=== PATIENT | female | born 1945 | race Caucasian/White ===

== ENCOUNTER 2017-02-20 10:08 | Inpatient (IN) | payer MEDICARE ==
[~2017-02-20] VITALS: Ht 152.4 cm; Wt 56.6 kg
[~2017-02-20 10:08] MED LIST: ASPIRIN 32325 MG/TAB PO; ASPIRIN 81M81 MG/TA2 PO; CELEXA40 MG PO; GABAPENTIN800 MG PO; GLUCOPHAGE1000 MG PO; HUMALOG100 U/ML SC; HUMALOG100 U/ML SQ; LANTUS100 U/ML SC; LEVAQUIN 5500 MG/TA1 PO; LIP PO; LUNESTA3 MG PO; MAG-OX 400400 MG/TAB PO; METFORMIN1000 MG PO; MYSOLINE 5050 MG/TAB PO; NEURONTIN800 MG/TAB PO; NOVOLOG 100U100 U/M1; NOVOLOG 100U100 U/M1 SC; NOVOLOG100 U/ML SC; PREVACID 30MG30 M1 PO; PRINIVIL2.5 MG PO; RANITIDINE150 MG PO; RESTORIL 1515 MG/CAP PO; SINEMET 25/101 UDTAB PO; [UNRECOGNIZED DRUG - OTHER] SC; [UNRECOGNIZED DRUG - OTHER] SQ
[2017-02-20 10:39] LABS: PH 5 (5-8); SQUAMOUS EPITHELIAL 0-2 /hpf; URINE APPEARANCE Clear; URINE BACTERIA None Seen /hpf; URINE BILIRUBIN Negative (NEGATIVE); URINE BLOOD 1+ (NEGATIVE); URINE COLOR Yellow; URINE GLUCOSE Negative (NEGATIVE); URINE KETONE Trace (NEGATIVE); URINE UROBILINOGEN Negative (NEGATIVE)
[2017-02-20 10:49] LABS: BASO # 0.1 (0.0-0.2); BASO % 0.3 % (0.0-2.0); EOS # 0.7 (0.0-0.7); GRAN # 14.9 (1.4-6.5); HEMATOCRIT 39.7 % (37.0-47.0); LYMPH # 0.9 (1.2-3.4); LYMPH % 5.2 % (20.0-51.0); MEAN CELL VOLUME 92 fl (80.0-100.0); MEAN CORPUSCULAR HEMOGLOBIN 30 pg (27.0-31.0); MEAN CORPUSCULAR HGB CONC 33 g/dl (33.0-37.0); MEAN PLATELET VOLUME 10.4 fl (7.4-10.4); MONO # 0.5 (0.1-0.6); PLATELET COUNT 185 K/mm3 (130-400); RED BLOOD COUNT 4.32 M/mm3 (4.10-5.30); REDCELL DISTRIBUTION WIDTH-CV 13.3 % (11.5-14.5); WHITE BLOOD COUNT 17.2 K/mm3 (4.8-10.8)
[2017-02-20] MEDS ORDERED: WELLBUTRIN XL150 MG PO (10:49)
[2017-02-20] MEDS ORDERED: PLAVIX 75MG TAB75 MG PO (10:50)
[2017-02-20] MEDS ORDERED: VITAMIN D1000 IU PO (10:50)
[2017-02-20] MEDS ORDERED: PEPCID 20MG TAB20 MG PO (10:51)
[2017-02-20] MEDS ORDERED: HUMULIN R 10100 U/ML SQ (10:52)
[2017-02-20] MEDS ORDERED: PRINIVIL2.5 MG PO (10:53)
[2017-02-20] MEDS ORDERED: HUMULIN N 10100 U/ML SC (10:53)
[2017-02-20] MEDS ORDERED: MAG-OX 400400 MG/TAB PO (10:55)
[2017-02-20 10:59] LABS: ADJUSTED CALCIUM 9.6 mg/dL (8.4-10.2); ALBUMIN 4.3 gm/dL (3.5-5.0); CALCIUM 9.8 mg/dL (8.4-10.2); CREATININE, serum 1.2 mg/dL (0.52-1.25); POTASSIUM 5.3 mmol/L (3.4-5.0); TOTAL PROTEIN 7.7 gm/dL (6.4-8.2)
[2017-02-20] MEDS ORDERED: TOPROL XL 25MG25 MG PO (11:00)
[2017-02-20] MEDS ORDERED: NITROSTAT0.4 MG/TAB SL (11:01)
[2017-02-20] MEDS ORDERED: ZOFRAN8 MG PO (11:03)
[2017-02-20] MEDS ORDERED: MACROBID 1100 MG/CAP PO (11:04)
[2017-02-20] MEDS ORDERED: RESTORIL 1515 MG/CAP PO (11:04)
[2017-02-20 12:19] VITALS: BP 140/79; PULSE 89
[2017-02-20 15:36] VITALS: BP 143/48; PULSE 90; TEMP 99.9
[2017-02-20 15:45] VITALS: BP 143/48; PULSE 89; TEMP 99.9
[2017-02-20 15:46] LABS: MAGNESIUM 1.5 mg/dL (1.6-2.3); PHOSPHOROUS 4.6 mg/dL (2.5-4.5)
[2017-02-20 20:30] VITALS: BP 131/43; PULSE 92; TEMP 98.3
[2017-02-21 00:30] VITALS: BP 142/40; PULSE 81; TEMP 98
[2017-02-21 03:10] VITALS: BP 127/47; PULSE 73; TEMP 98
[2017-02-21 07:01] LABS: CREATININE, serum 0.8 mg/dL (0.52-1.25); MAGNESIUM 1.5 mg/dL (1.6-2.3); POTASSIUM 4.5 mmol/L (3.4-5.0)
[2017-02-21 07:44] LABS: BASO % 0.2 % (0.0-2.0); EOS # 0.9 (0.0-0.7); GRAN # 8.1 (1.4-6.5); GRAN % 75.1 % (42.2-75.2); HEMATOCRIT 39.1 % (37.0-47.0); LYMPH # 1.1 (1.2-3.4); LYMPH % 10.1 % (20.0-51.0); MEAN CELL VOLUME 91 fl (80.0-100.0); MEAN CORPUSCULAR HEMOGLOBIN 30 pg (27.0-31.0); MEAN CORPUSCULAR HGB CONC 33 g/dl (33.0-37.0); MONO # 0.7 (0.1-0.6); RED BLOOD COUNT 4.31 M/mm3 (4.10-5.30); REDCELL DISTRIBUTION WIDTH-CV 13.2 % (11.5-14.5); WHITE BLOOD COUNT 10.8 K/mm3 (4.8-10.8)
[2017-02-21 07:58] VITALS: BP 162/57; PULSE 93; TEMP 98
[2017-02-21 08:14] LABS: PLATELET COUNT 112 K/mm3 (130-400)
[2017-02-21 12:28] VITALS: BP 139/63; PULSE 77; TEMP 98
[2017-02-21 15:29] VITALS: BP 142/50; PULSE 76; TEMP 98.2
[2017-02-21 20:02] VITALS: BP 149/58; PULSE 81; TEMP 98.2
[2017-02-22 00:13] VITALS: BP 153/61; PULSE 84; TEMP 97.7
[2017-02-22 04:51] VITALS: BP 177/66; PULSE 81; TEMP 98.7
[2017-02-22 08:00] VITALS: BP 177/66; PULSE 80; TEMP 98.5
[2017-02-22 13:03] VITALS: BP 178/66; PULSE 80; TEMP 98.7
[2017-02-22 16:47] VITALS: BP 146/66; PULSE 80; TEMP 97.4
[2017-02-22 19:07] VITALS: BP 146/63; PULSE 89; TEMP 97.8
[2017-02-23] VITALS (7 sets, daily range): BP systolic 146–176; BP diastolic 58–77; PULSE 76–86; TEMP 97.2–98.5
[2017-02-23 07:26] LABS: INR 1.2 (0.8-3.0); PROTHROMBIN TIME 12.8 SECONDS (9.7-12.8)
[2017-02-24 02:40] VITALS: BP 156/53; PULSE 83; TEMP 98.1
[2017-02-24 10:15] VITALS: BP 177/69; PULSE 82
[2017-02-24 12:31] VITALS: BP 171/59; PULSE 80; TEMP 98.4
[2017-02-24] MEDS ORDERED: LOVENOX 3030 MG/0.3 SQ (14:17)
[2017-03-05] MEDS ORDERED: PLAVIX 75MG TAB75 MG PO (07:48)
[2017-03-05] MEDS ORDERED: ASPIRIN 81M81 MG/TA2 PO (07:49)
[2017-03-05] MEDS ORDERED: GLUCOPHAGE1000 MG PO (07:50)
[2017-05-30] MEDS ORDERED: CALCIUM 600MG+D1 TAB PO (10:52)
[2017-05-30] MEDS ORDERED: HUMULIN N 10100 U/ML SQ (10:55)
[2017-05-30] MEDS ORDERED: HUMULIN R 10100 U/ML SQ (10:56)
[2017-05-30] MEDS ORDERED: FORT1000TA PO (10:58)
[2017-05-30] MEDS ORDERED: TOPROL XL 25MG25 MG PO (10:59)
== END 2017-02-24 16:30 | disposition home or self-care (01) | DRG 872 ==
LOC: COL.ER 10:08 → MEDICAL 12:17
PROVIDERS: Emergency Medicine; Family Medicine; Physician Assistant
DX: A41.51 Sepsis due to Escherichia coli [E. coli] (principal); N39.0 Urinary tract infection, site not specified; Z66 Do not resuscitate; R91.8 Other nonspecific abnormal finding of lung field; E87.5 Hyperkalemia; I25.10 Atherosclerotic heart disease of native coronary artery without angina pectoris; I10 Essential (primary) hypertension; G20 Parkinson's disease; Z95.5 Presence of coronary angioplasty implant and graft; E11.42 Type 2 diabetes mellitus with diabetic polyneuropathy; J44.9 Chronic obstructive pulmonary disease, unspecified; F17.210 Nicotine dependence, cigarettes, uncomplicated; Z79.4 Long term (current) use of insulin; W18.30XA Fall on same level, unspecified, initial encounter; E86.0 Dehydration; B96.20 Unspecified Escherichia coli [E. coli] as the cause of diseases classified elsewhere
CPT/HCPCS: 99222-AI; 99232-AI; 99239; A9284; A9585; G0378; G8978-GP; G8979-GP; J0696; J1650; J1815; J2920; J7030; Q9967

== ENCOUNTER 2017-02-26 13:46 | Inpatient (IN) | payer MEDICARE ==
[~2017-02-26] VITALS: Ht 154.9 cm; Wt 54.0 kg
[2017-02-26] VITALS (372 sets, daily range): BP systolic 135–142; BP diastolic 53–64; PULSE 95–102; TEMP 98.2–99.1; O2SAT 63–98
[~2017-02-26 13:46] MED LIST changes: +HUMULIN N 10100 U/ML SC; +HUMULIN R 10100 U/ML SQ; +LOVENOX 3030 MG/0.3 SQ; +MACROBID 1100 MG/CAP PO; +NITROSTAT0.4 MG/TAB SL; +PEPCID 20MG TAB20 MG PO; +PLAVIX 75MG TAB75 MG PO; +TOPROL XL 25MG25 MG PO; +VITAMIN D1000 IU PO; +WELLBUTRIN XL150 MG PO; +ZOFRAN8 MG PO
[2017-02-26 14:17] LABS: BASO % 0.2 % (0.0-2.0); EOS # 1.1 (0.0-0.7); EOS % 5.2 % (0-4.0); GRAN # 19.1 (1.4-6.5); GRAN % 87.9 % (42.2-75.2); HEMATOCRIT 39.2 % (37.0-47.0); LYMPH # 0.8 (1.2-3.4); LYMPH % 3.4 % (20.0-51.0); MEAN CELL VOLUME 90 fl (80.0-100.0); MEAN CORPUSCULAR HEMOGLOBIN 30 pg (27.0-31.0); MEAN CORPUSCULAR HGB CONC 33 g/dl (33.0-37.0); MEAN PLATELET VOLUME 10.2 fl (7.4-10.4); MONO # 0.6 (0.1-0.6); MONO % 2.6 % (1.7-9.3); PLATELET COUNT 204 K/mm3 (130-400); RED BLOOD COUNT 4.34 M/mm3 (4.10-5.30); REDCELL DISTRIBUTION WIDTH-CV 13.5 % (11.5-14.5)
[2017-02-26 14:26] LABS: WHITE BLOOD COUNT 21.8 K/mm3 (4.8-10.8)
[2017-02-26 14:33] LABS: INFLUENZA B NEGATIVE
[2017-02-26 14:36] LABS: ADJUSTED CALCIUM 9.7 mg/dL (8.4-10.2); ALBUMIN 3.5 gm/dL (3.5-5.0); BILIRUBIN,TOTAL 1.1 mg/dL (0.0-1.0); CALCIUM 9.3 mg/dL (8.4-10.2); CREATININE, serum 0.81 mg/dL (0.52-1.25); POTASSIUM 3.6 mmol/L (3.4-5.0); TOTAL PROTEIN 6.7 gm/dL (6.4-8.2)
[2017-02-26 14:48] LABS: TROPONIN-I 0.013 ng/mL (0.000-0.034)
[2017-02-26 15:09] LABS: VENOUS BLOOD GAS BE 0.6 (-4-4); VENOUS BLOOD GAS SAO2 60.8 % (60-80)
[2017-02-26 15:10] LABS: VENOUS BLOOD GAS SITE VENIPUNCTURE
[2017-02-26] MEDS ORDERED: LOVENOX 3030 MG/0.3 SQ (16:09)
[2017-02-26 16:23] LABS: PH 5 (5-8); SQUAMOUS EPITHELIAL 0-2 /hpf; URINE APPEARANCE Clear; URINE BACTERIA None Seen /hpf; URINE BILIRUBIN Negative (NEGATIVE); URINE BLOOD 1+ (NEGATIVE); URINE COLOR Yellow; URINE GLUCOSE 3+ (NEGATIVE); URINE KETONE 1+ (NEGATIVE); URINE RBC 0-2 /hpf; URINE UROBILINOGEN Negative (NEGATIVE); URINE WBC 0-2 /hpf
[2017-02-26 20:08] LABS: ALLEN TEST YES; ALLENS TEST RESULT PASS; ARTERIAL BLD GAS O2 SATURATION 88.3 % (92-100); ARTERIAL BLD GAS TCO2 CT 25.3; ARTERIAL BLOOD GAS BASE EXCESS -0.8 (-2-2); ARTERIAL BLOOD GAS HCO3 24.1 meq/L (22-26); ARTERIAL BLOOD GAS PO2 64.6 mmHg (80-100); ARTERIAL BLOOD GAS pH 7.39 (7.35-7.45); ATS? YES
[2017-02-27] VITALS (686 sets, daily range): BP systolic 112–150; BP diastolic 45–62; PULSE 77–89; TEMP 96.2–98.5; O2SAT 88–100
[2017-02-27 06:05] LABS: ADD PATHOLOGY DIFF REVIEW NO
[2017-02-27 06:15] LABS: MEAN CELL VOLUME 92 fl (80.0-100.0); MEAN CORPUSCULAR HGB CONC 32 g/dl (33.0-37.0); MEAN PLATELET VOLUME 10.3 fl (7.4-10.4); PLATELET COUNT 168 K/mm3 (130-400); RED BLOOD COUNT 3.61 M/mm3 (4.10-5.30); REDCELL DISTRIBUTION WIDTH-CV 13.5 % (11.5-14.5); WHITE BLOOD COUNT 16.7 K/mm3 (4.8-10.8)
[2017-02-27 06:30] LABS: HEMATOCRIT 33.2 % (37.0-47.0); HEMOGLOBIN 10.7 g/dl (12.5-16.0); MEAN CORPUSCULAR HEMOGLOBIN 30 pg (27.0-31.0)
[2017-02-27 10:56] LABS: BAND 4 % (0-10); EOSINOPHIL 3 % (0-4); NEUTROPHILS 89 % (42.0-75.2); TOTAL CELLS COUNTED 100
[2017-02-27 10:57] LABS: TOXIC GRANULATION PRESENT
[2017-02-28] VITALS (7 sets, daily range): BP systolic 107–157; BP diastolic 44–78; PULSE 67–84; TEMP 96.5–98.5
[2017-02-28 12:27] LABS: BASO % 0.2 % (0.0-2.0); EOS # 1.4 (0.0-0.7); EOS % 8.1 % (0-4.0); GRAN # 13.8 (1.4-6.5); GRAN % 78.7 % (42.2-75.2); LYMPH # 1.6 (1.2-3.4); LYMPH % 9.3 % (20.0-51.0); MEAN CELL VOLUME 92 fl (80.0-100.0); MEAN CORPUSCULAR HGB CONC 32 g/dl (33.0-37.0); MEAN PLATELET VOLUME 10.3 fl (7.4-10.4); MONO # 0.6 (0.1-0.6); MONO % 3.2 % (1.7-9.3); PLATELET COUNT 204 K/mm3 (130-400); RED BLOOD COUNT 3.79 M/mm3 (4.10-5.30); REDCELL DISTRIBUTION WIDTH-CV 13.7 % (11.5-14.5); WHITE BLOOD COUNT 17.6 K/mm3 (4.8-10.8)
[2017-02-28 12:29] LABS: HEMOGLOBIN 11.2 g/dl (12.5-16.0); MEAN CORPUSCULAR HEMOGLOBIN 30 pg (27.0-31.0)
[2017-03-01 03:59] VITALS: BP 156/66; PULSE 71; TEMP 98.6
[2017-03-01 08:05] VITALS: BP 163/60; PULSE 76; TEMP 98.7
[2017-03-01 12:24] VITALS: BP 143/56; PULSE 81; TEMP 98.4
[2017-03-01] MEDS ORDERED: IPRATROPIUM BROM3 M1 IH ×2 (15:47→15:48)
[2017-03-01] MEDS ORDERED: LEVAQUIN 750MG750 M1 PO (15:47)
[2017-03-01] MEDS ORDERED: TYLENOL 325MG325 MG PO (15:49)
[2017-03-01] MEDS ORDERED: NOVOLOG FLEX100 U/ML SQ ×2 (15:50)
[2017-03-01] MEDS ORDERED: LEVEMIR FLEX100 U/ML SQ (15:51)
[2017-03-01] MEDS ORDERED: PERCOCET 325 MG1 TA2 PO (15:53)
[2017-03-01 16:03] VITALS: BP 143/56; PULSE 81; TEMP 98.4
[2017-03-05] MEDS ORDERED: PLAVIX 75MG TAB75 MG PO (07:48)
[2017-03-05] MEDS ORDERED: ASPIRIN 81M81 MG/TA2 PO (07:49)
[2017-03-05] MEDS ORDERED: GLUCOPHAGE1000 MG PO (07:50)
[2017-05-30] MEDS ORDERED: CALCIUM 600MG+D1 TAB PO (10:52)
[2017-05-30] MEDS ORDERED: HUMULIN N 10100 U/ML SQ (10:55)
[2017-05-30] MEDS ORDERED: HUMULIN R 10100 U/ML SQ (10:56)
[2017-05-30] MEDS ORDERED: FORT1000TA PO (10:58)
[2017-05-30] MEDS ORDERED: TOPROL XL 25MG25 MG PO (10:59)
== END 2017-03-01 17:27 | DRG 181 ==
LOC: COL.ER 13:46 → MEDICAL 13:55 → ICU 13:55 → MEDICAL 02-27 17:10
PROVIDERS: Emergency Medicine; Internal Medicine
DX: C34.31 Malignant neoplasm of lower lobe, right bronchus or lung (principal); S22.41XA Multiple fractures of ribs, right side, initial encounter for closed fracture; J44.9 Chronic obstructive pulmonary disease, unspecified; I10 Essential (primary) hypertension; E11.42 Type 2 diabetes mellitus with diabetic polyneuropathy; G20 Parkinson's disease; I25.10 Atherosclerotic heart disease of native coronary artery without angina pectoris; F17.210 Nicotine dependence, cigarettes, uncomplicated; W18.30XA Fall on same level, unspecified, initial encounter
CPT/HCPCS: 99223-AI; 99232-AI; 99233-AI; 99239; A9284; J0692; J1650; J1815; J1956; J2930; J3370; J7030; J7050; Q9967

== ENCOUNTER 2017-03-05 08:08 | Outpatient (CLI) | payer MEDICARE ==
[~2017-03-05] VITALS: Ht 154.9 cm; Wt 52.3 kg
[2017-03-05] VITALS (15 sets, daily range): BP systolic 113–175; BP diastolic 56–91; PULSE 68–88
[~2017-03-05 08:08] MED LIST changes: +IPRATROPIUM BROM3 M1 IH; +LEVAQUIN 750MG750 M1 PO; +LEVEMIR FLEX100 U/ML SQ; +NOVOLOG FLEX100 U/ML SQ; +PERCOCET 325 MG1 TA2 PO; +TYLENOL 325MG325 MG PO
[2017-05-30] MEDS ORDERED: CALCIUM 600MG+D1 TAB PO (10:52)
[2017-05-30] MEDS ORDERED: HUMULIN N 10100 U/ML SQ (10:55)
[2017-05-30] MEDS ORDERED: HUMULIN R 10100 U/ML SQ (10:56)
[2017-05-30] MEDS ORDERED: FORT1000TA PO (10:58)
[2017-05-30] MEDS ORDERED: TOPROL XL 25MG25 MG PO (10:59)
== END 2017-03-05 13:00 | disposition home or self-care (01) ==
LOC: COL.RAD 08:08
DX: C34.31 Malignant neoplasm of lower lobe, right bronchus or lung (principal)
CPT/HCPCS: J2250; J3010

== ENCOUNTER 2017-03-22 09:56 | Inpatient (IN) | payer MEDICARE ==
[~2017-03-22] VITALS: Ht 154.9 cm; Wt 62.4 kg
[2017-03-22] VITALS (425 sets, daily range): BP systolic 83–127; BP diastolic 40–58; PULSE 86–88; TEMP 97.1–98; O2SAT 70–100
[2017-03-22 10:46] LABS: BASO # 0.1 (0.0-0.2); BASO % 0.3 % (0.0-2.0); EOS # 0.8 (0.0-0.7); EOS % 3.9 % (0-4.0); GRAN # 17.4 (1.4-6.5); GRAN % 88.2 % (42.2-75.2); HEMATOCRIT 39.1 % (37.0-47.0); HEMOGLOBIN 12.5 g/dl (12.5-16.0); INR 1.1 (0.8-3.0); LYMPH # 0.9 (1.2-3.4); LYMPH % 4.7 % (20.0-51.0); MEAN CELL VOLUME 93 fl (80.0-100.0); MEAN CORPUSCULAR HEMOGLOBIN 30 pg (27.0-31.0); MEAN CORPUSCULAR HGB CONC 32 g/dl (33.0-37.0); MEAN PLATELET VOLUME 10.4 fl (7.4-10.4); MONO # 0.4 (0.1-0.6); MONO % 2.2 % (1.7-9.3); PLATELET COUNT 217 K/mm3 (130-400); RED BLOOD COUNT 4.19 M/mm3 (4.10-5.30); REDCELL DISTRIBUTION WIDTH-CV 13.3 % (11.5-14.5); WHITE BLOOD COUNT 19.7 K/mm3 (4.8-10.8)
[2017-03-22 10:49] LABS: PARTIAL THROMBOPLASTIN TIME 32.1 SECONDS (26.0-37.0)
[2017-03-22 10:58] LABS: ADJUSTED CALCIUM 9.7 mg/dL (8.4-10.2); ALANINE AMINOTRANSFERASE 18 U/L (9-52); ALBUMIN 4.1 gm/dL (3.5-5.0); ALKALINE PHOSPHATASE 123 U/L (50-136); ANION GAP 14 mmol/L (7-16); BLOOD UREA NITROGEN 32 mg/dL (7-17); CALCIUM 9.8 mg/dL (8.4-10.2); CARBON DIOXIDE 28 mmol/L (22-30); CHLORIDE 99 mmol/L (98-107); CREATININE, serum 1.25 mg/dL (0.52-1.25); GLUCOSE 105 mg/dL (74-106); LIPASE 130 U/L (23-300); POTASSIUM 4.9 mmol/L (3.4-5.0); SODIUM 141 mmol/L (137-145); TOTAL PROTEIN 7.5 gm/dL (6.4-8.2)
[2017-03-22 11:10] LABS: B-TYPE NATRIURETIC PEPTIDE 1010 pg/mL (0-125)
[2017-03-22 11:11] LABS: TROPONIN-I < 0.012 ng/mL (0.000-0.034)
[2017-03-22 12:33] LABS: PH 5 (5-8); URINE APPEARANCE Hazy; URINE BACTERIA None Seen /hpf; URINE BILIRUBIN Negative (NEGATIVE); URINE BLOOD Negative (NEGATIVE); URINE COLOR Yellow; URINE GLUCOSE Negative (NEGATIVE); URINE KETONE Trace (NEGATIVE); URINE RBC 0-2 /hpf; URINE UROBILINOGEN Negative (NEGATIVE); URINE WBC 0-2 /hpf
[2017-03-22 13:17] LABS: ARTERIAL BLD GAS O2 SATURATION 92.6 % (92-100); ARTERIAL BLD GAS TCO2 CT 28.6; ARTERIAL BLOOD GAS BASE EXCESS 0.7 (-2-2); ARTERIAL BLOOD GAS PHT 7.34 C (7.35-7.45); ARTERIAL BLOOD GAS PO2 75.2 mmHg (80-100); ARTERIAL BLOOD GAS PO2T 75.2 (80-100); ARTERIAL BLOOD GAS pH 7.34 (7.35-7.45); OXYHEMOGLOBIN 91.9 %
[2017-03-22 13:18] LABS: ATS? YES
[2017-03-22] MEDS ORDERED: MILK OF MA400 MG/52 PO (13:52)
[2017-03-22] MEDS ORDERED: PERCOCET 325 MG1 TA2 PO (13:53)
[2017-03-22] MEDS ORDERED: IPRATROPIUM BROM3 M1 IH ×2 (13:55→14:01)
[2017-03-22] MEDS ORDERED: LEVEMIR100 U/ML SQ (13:58)
[2017-03-22] MEDS ORDERED: NOVOLOG 100U100 U/M1 SQ ×2 (13:58→14:11)
[2017-03-22] MEDS ORDERED: LIPITOR 80MG80 MG PO (14:02)
[2017-03-22] MEDS ORDERED: MAG-OX 400400 MG/TAB PO (14:13)
[2017-03-22] MEDS ORDERED: ALMACONE 360 M360 ML PO (14:14)
[2017-03-22] MEDS ORDERED: GENTLE LAXATIVE10 MG RC (14:15)
[2017-03-22] MEDS ORDERED: TYLENOL 325MG325 MG PO (14:16)
[2017-03-22] MEDS ORDERED: IMODIUM 2MG CAPS2 MG PO (14:17)
[2017-03-23] VITALS (756 sets, daily range): BP systolic 114–167; BP diastolic 52–64; PULSE 79–110; TEMP 97–98.9; O2SAT 87–100
[2017-03-23 03:24] LABS: BASO % 0.2 % (0.0-2.0); EOS % 0.3 % (0-4.0); GRAN # 10.7 (1.4-6.5); GRAN % 90.9 % (42.2-75.2); HEMATOCRIT 30.9 % (37.0-47.0); HEMOGLOBIN 10.1 g/dl (12.5-16.0); LYMPH # 0.8 (1.2-3.4); MEAN CELL VOLUME 93 fl (80.0-100.0); MEAN CORPUSCULAR HEMOGLOBIN 31 pg (27.0-31.0); MEAN CORPUSCULAR HGB CONC 33 g/dl (33.0-37.0); MEAN PLATELET VOLUME 10.4 fl (7.4-10.4); MONO # 0.1 (0.1-0.6); MONO % 0.8 % (1.7-9.3); PLATELET COUNT 132 K/mm3 (130-400); RED BLOOD COUNT 3.31 M/mm3 (4.10-5.30); WHITE BLOOD COUNT 11.8 K/mm3 (4.8-10.8)
[2017-03-23 03:34] LABS: ADJUSTED CALCIUM 9.2 mg/dL (8.4-10.2); ALBUMIN 3.1 gm/dL (3.5-5.0); BILIRUBIN,TOTAL 0.7 mg/dL (0.0-1.0); CALCIUM 8.5 mg/dL (8.4-10.2); CREATININE, serum 0.91 mg/dL (0.52-1.25); POTASSIUM 4.4 mmol/L (3.4-5.0)
[2017-03-23 03:45] LABS: INR 1.2 (0.8-3.0); PROTHROMBIN TIME 13.5 SECONDS (9.7-12.8)
[2017-03-23 05:37] LABS: ARTERIAL BLOOD GAS PO2 93.7 mmHg (80-100); ARTERIAL BLOOD GAS pH 7.35 (7.35-7.45)
[2017-03-23 05:38] LABS: ALLEN TEST YES; ALLENS TEST RESULT PASS; ARTERIAL BLD GAS O2 SATURATION 96.2 % (92-100); ARTERIAL BLD GAS TCO2 CT 25.1; ARTERIAL BLOOD GAS BASE EXCESS -1.8 (-2-2); ARTERIAL BLOOD GAS HCO3 23.7 meq/L (22-26); ATS? YES
[2017-03-24 00:02] VITALS: BP 165/70; PULSE 85; TEMP 97
[2017-03-24 04:00] VITALS: BP 146/58; PULSE 88; TEMP 98.6
[2017-03-24 07:32] LABS: MEAN CELL VOLUME 94 fl (80.0-100.0); MEAN CORPUSCULAR HGB CONC 32 g/dl (33.0-37.0); PLATELET COUNT 130 K/mm3 (130-400); RED BLOOD COUNT 3.23 M/mm3 (4.10-5.30); REDCELL DISTRIBUTION WIDTH-CV 13.2 % (11.5-14.5); WHITE BLOOD COUNT 13.8 K/mm3 (4.8-10.8)
[2017-03-24 07:39] LABS: HEMATOCRIT 30.3 % (37.0-47.0); HEMOGLOBIN 9.7 g/dl (12.5-16.0); MEAN CORPUSCULAR HEMOGLOBIN 30 pg (27.0-31.0)
[2017-03-24 07:40] LABS: ADD PATHOLOGY DIFF REVIEW NO
[2017-03-24 07:45] LABS: ADJUSTED CALCIUM 9.8 mg/dL (8.4-10.2); ALBUMIN 2.8 gm/dL (3.5-5.0); BILIRUBIN,TOTAL 0.4 mg/dL (0.0-1.0); CALCIUM 8.8 mg/dL (8.4-10.2); TOTAL PROTEIN 5.9 gm/dL (6.4-8.2)
[2017-03-24 08:00] VITALS: BP 144/53; PULSE 87; TEMP 97.5
[2017-03-24 08:24] LABS: CREATININE, serum 0.8 mg/dL (0.52-1.25)
[2017-03-24 10:05] VITALS: BP 144/53; PULSE 87; TEMP 97.5
[2017-03-24 10:28] LABS: BAND 2 % (0-10); NEUTROPHILS 86 % (42.0-75.2); TOTAL CELLS COUNTED 100
[2017-03-24 10:29] LABS: PLATELET ESTIMATE NORMAL (NORMAL)
[2017-03-24] MEDS ORDERED: TOPROL XL 25MG25 MG PO (10:49)
[2017-03-24] MEDS ORDERED: PREDNISONE20 MG PO (10:50)
[2017-03-24] MEDS ORDERED: OMNICEF 300MG300 MG PO (10:50)
[2017-03-24 12:38] VITALS: BP 161/65; PULSE 90; TEMP 98.5
[2017-05-30] MEDS ORDERED: CALCIUM 600MG+D1 TAB PO (10:52)
[2017-05-30] MEDS ORDERED: HUMULIN N 10100 U/ML SQ (10:55)
[2017-05-30] MEDS ORDERED: HUMULIN R 10100 U/ML SQ (10:56)
[2017-05-30] MEDS ORDERED: FORT1000TA PO (10:58)
[2017-05-30] MEDS ORDERED: TOPROL XL 25MG25 MG PO (10:59)
== END 2017-03-24 15:09 | disposition home health service (06) | DRG 189 ==
LOC: COL.ER 09:56 → ICU 12:53 → MEDICAL 03-23 14:07
PROVIDERS: Emergency Medicine; Internal Medicine
PROC: 02HV33Z Insertion of Infusion Device into Superior Vena Cava, Percutaneous Approach (ICD-10-PCS; principal; 2017-03-22)
DX: J96.02 Acute respiratory failure with hypercapnia (principal); A41.9 Sepsis, unspecified organism; C34.31 Malignant neoplasm of lower lobe, right bronchus or lung; J96.01 Acute respiratory failure with hypoxia; G20 Parkinson's disease; J44.9 Chronic obstructive pulmonary disease, unspecified; E11.9 Type 2 diabetes mellitus without complications; Z86.73 Personal history of transient ischemic attack (TIA), and cerebral infarction without residual deficits; Z88.0 Allergy status to penicillin
CPT/HCPCS: 99223-AI; 99233-AI; 99239; C1751; J0692; J1644; J1650; J1815; J1956; J2920; J2930; J3370; J7030; J7050; J7512; Q9967

== ENCOUNTER → 2017-04-30 | Outpatient (CLI) | payer MEDICARE ==
[~2017-04-30] MED LIST changes: +ALMACONE 360 M360 ML PO; +CALCIUM 600MG+D1 TAB PO; +FORT1000TA PO; +GENTLE LAXATIVE10 MG RC; +HUMULIN N 10100 U/ML SQ; +IMODIUM 2MG CAPS2 MG PO; +LEVEMIR100 U/ML SQ; +LIPITOR 80MG80 MG PO; +MILK OF MA400 MG/52 PO; +NOVOLOG 100U100 U/M1 SQ; +OMNICEF 300MG300 MG PO; +PREDNISONE20 MG PO
== END ==
LOC: COL.PUL 09:00
DX: C34.31 Malignant neoplasm of lower lobe, right bronchus or lung (principal); I10 Essential (primary) hypertension; J44.9 Chronic obstructive pulmonary disease, unspecified

== ENCOUNTER 2017-05-30 16:11 | Emergency (ER) | payer MEDICARE ==
[~2017-05-30] VITALS: Ht 154.9 cm; Wt 48.6 kg
[~2017-05-30 16:11] MED LIST changes: +CELEXA 20MG20 MG/TAB PO; -CELEXA40 MG PO
[2017-05-30 16:12] VITALS: TEMP 97.8
[2017-05-30 16:48] LABS: BASO % 0.2 % (0.0-2.0); EOS # 0.4 (0.0-0.7); EOS % 2.5 % (0-4.0); GRAN # 12.7 (1.4-6.5); GRAN % 78.7 % (42.2-75.2); LYMPH # 1.9 (1.2-3.4); LYMPH % 11.5 % (20.0-51.0); MEAN CELL VOLUME 88 fl (80.0-100.0); MEAN CORPUSCULAR HGB CONC 33 g/dl (33.0-37.0); MEAN PLATELET VOLUME 9.5 fl (7.4-10.4); MONO % 6.3 % (1.7-9.3); PLATELET COUNT 281 K/mm3 (130-400); RED BLOOD COUNT 3.73 M/mm3 (4.10-5.30); WHITE BLOOD COUNT 16.2 K/mm3 (4.8-10.8)
[2017-05-30 16:51] LABS: HEMATOCRIT 32.9 % (37.0-47.0); HEMOGLOBIN 10.7 g/dl (12.5-16.0); MEAN CORPUSCULAR HEMOGLOBIN 29 pg (27.0-31.0)
[2017-05-30 16:58] LABS: CALCIUM 9.8 mg/dL (8.4-10.2); CREATININE, serum 1.01 mg/dL (0.52-1.25)
[2017-05-30 19:43] VITALS: BP 112/68; PULSE 90
== END 2017-05-30 18:20 | disposition home or self-care (01) ==
LOC: COL.ER 16:11
PROVIDERS: Emergency Medicine
DX: S09.90XA Unspecified injury of head, initial encounter (principal); Z85.118 Personal history of other malignant neoplasm of bronchus and lung; W01.198A Fall on same level from slipping, tripping and stumbling with subsequent striking against other object, initial encounter; Y92.009 Unspecified place in unspecified non-institutional (private) residence as the place of occurrence of the external cause

== ENCOUNTER 2017-08-20 11:45 | Outpatient (RCR) | payer MEDICARE ==
[2017-05-30 09:30] VITALS: BP 127/67; PULSE 92; TEMP 97.7
[2017-05-30 09:55] LABS: ADD PATHOLOGY DIFF REVIEW NO
[2017-05-30 10:33] LABS: MEAN CELL VOLUME 89 fl (80.0-100.0); MEAN CORPUSCULAR HGB CONC 32 g/dl (33.0-37.0); MEAN PLATELET VOLUME 9.7 fl (7.4-10.4); PLATELET COUNT 300 K/mm3 (130-400); RED BLOOD COUNT 3.83 M/mm3 (4.10-5.30); WHITE BLOOD COUNT 17.4 K/mm3 (4.8-10.8)
[2017-05-30 10:42] LABS: MEAN CORPUSCULAR HEMOGLOBIN 29 pg (27.0-31.0)
[2017-05-30 11:54] LABS: BAND 8 % (0-10); EOSINOPHIL 2 % (0-4); NEUTROPHILS 78 % (42.0-75.2); PLATELET ESTIMATE NORMAL (NORMAL); TOTAL CELLS COUNTED 100
[2017-05-31 12:00] VITALS: BP 100/54; PULSE 101; TEMP 98
[2017-06-03 10:23] VITALS: BP 95/46; PULSE 93; TEMP 97.7
[2017-06-06 12:17] LABS: ADD PATHOLOGY DIFF REVIEW NO
[2017-06-06 12:25] LABS: MEAN CELL VOLUME 89 fl (80.0-100.0); MEAN CORPUSCULAR HGB CONC 32 g/dl (33.0-37.0); MEAN PLATELET VOLUME 9.8 fl (7.4-10.4); PLATELET COUNT 246 K/mm3 (130-400); RED BLOOD COUNT 3.41 M/mm3 (4.10-5.30); REDCELL DISTRIBUTION WIDTH-CV 14.7 % (11.5-14.5); WHITE BLOOD COUNT 12.6 K/mm3 (4.8-10.8)
[2017-06-06 12:34] LABS: HEMATOCRIT 30.5 % (37.0-47.0); HEMOGLOBIN 9.7 g/dl (12.5-16.0); MEAN CORPUSCULAR HEMOGLOBIN 28 pg (27.0-31.0)
[2017-06-06 13:56] VITALS: BP 100/51; PULSE 49; TEMP 97.8
[2017-06-06 13:57] LABS: BAND 19 % (0-10); NEUTROPHILS 75 % (42.0-75.2); PLATELET ESTIMATE INCREASED (NORMAL); TOTAL CELLS COUNTED 100
[2017-06-06 13:58] LABS: OVALOCYTES 1+
[2017-06-13 11:41] LABS: ADD PATHOLOGY DIFF REVIEW NO
[2017-06-13 11:48] VITALS: BP 81/44; PULSE 102; TEMP 97.3
[2017-06-13 11:49] LABS: MEAN CELL VOLUME 89 fl (80.0-100.0); MEAN CORPUSCULAR HGB CONC 32 g/dl (33.0-37.0); MEAN PLATELET VOLUME 9.3 fl (7.4-10.4); PLATELET COUNT 259 K/mm3 (130-400); REDCELL DISTRIBUTION WIDTH-CV 15.6 % (11.5-14.5); WHITE BLOOD COUNT 7.8 K/mm3 (4.8-10.8)
[2017-06-13 11:53] LABS: HEMATOCRIT 30.3 % (37.0-47.0); HEMOGLOBIN 9.8 g/dl (12.5-16.0); MEAN CORPUSCULAR HEMOGLOBIN 29 pg (27.0-31.0)
[2017-06-13 11:56] LABS: ADJUSTED CALCIUM 9.9 mg/dL (8.4-10.2); ALBUMIN 3.3 gm/dL (3.5-5.0); BILIRUBIN,TOTAL 0.6 mg/dL (0.0-1.0); CALCIUM 9.3 mg/dL (8.4-10.2); CREATININE, serum 0.93 mg/dL (0.52-1.25); POTASSIUM 4.7 mmol/L (3.4-5.0); TOTAL PROTEIN 6.7 gm/dL (6.4-8.2)
[2017-06-13 12:06] LABS: BAND 3 % (0-10); NEUTROPHILS 91 % (42.0-75.2); PLATELET ESTIMATE NORMAL (NORMAL); TOTAL CELLS COUNTED 100
[2017-06-20 11:38] LABS: ADD PATHOLOGY DIFF REVIEW NO
[2017-06-20 11:41] LABS: MEAN CELL VOLUME 91 fl (80.0-100.0); MEAN CORPUSCULAR HGB CONC 32 g/dl (33.0-37.0); MEAN PLATELET VOLUME 9.2 fl (7.4-10.4); PLATELET COUNT 157 K/mm3 (130-400); RED BLOOD COUNT 3.23 M/mm3 (4.10-5.30); REDCELL DISTRIBUTION WIDTH-CV 16.9 % (11.5-14.5); WHITE BLOOD COUNT 6.2 K/mm3 (4.8-10.8)
[2017-06-20 11:42] VITALS: BP 88/45; PULSE 96; TEMP 98.3
[2017-06-20 11:46] LABS: HEMATOCRIT 29.3 % (37.0-47.0); HEMOGLOBIN 9.5 g/dl (12.5-16.0); MEAN CORPUSCULAR HEMOGLOBIN 29 pg (27.0-31.0)
[2017-06-20 11:55] LABS: ADJUSTED CALCIUM 9.5 mg/dL (8.4-10.2); ALBUMIN 3.4 gm/dL (3.5-5.0); BILIRUBIN,TOTAL 0.4 mg/dL (0.0-1.0); CREATININE, serum 0.86 mg/dL (0.52-1.25); POTASSIUM 4.3 mmol/L (3.4-5.0); TOTAL PROTEIN 6.4 gm/dL (6.4-8.2)
[2017-06-20 12:18] LABS: BAND 5 % (0-10); NEUTROPHILS 84 % (42.0-75.2); PLATELET ESTIMATE NORMAL (NORMAL); TOTAL CELLS COUNTED 100
[2017-06-20 12:20] LABS: TOXIC GRANULATION PRESENT
[2017-06-27 11:38] LABS: ADD PATHOLOGY DIFF REVIEW NO
[2017-06-27 11:42] VITALS: BP 103/76; PULSE 101; TEMP 97.4
[2017-06-27 11:59] LABS: MEAN CELL VOLUME 92 fl (80.0-100.0); MEAN CORPUSCULAR HGB CONC 33 g/dl (33.0-37.0); MEAN PLATELET VOLUME 9.1 fl (7.4-10.4); PLATELET COUNT 104 K/mm3 (130-400); RED BLOOD COUNT 3.29 M/mm3 (4.10-5.30); REDCELL DISTRIBUTION WIDTH-CV 18.3 % (11.5-14.5); WHITE BLOOD COUNT 4.3 K/mm3 (4.8-10.8)
[2017-06-27 12:41] LABS: NEUTROPHILS 89 % (42.0-75.2); TOTAL CELLS COUNTED 100
[2017-06-27 12:43] LABS: PLATELET ESTIMATE DECREASED (NORMAL)
[2017-06-27 13:30] LABS: HEMATOCRIT 30.1 % (37.0-47.0); HEMOGLOBIN 9.8 g/dl (12.5-16.0); MEAN CORPUSCULAR HEMOGLOBIN 30 pg (27.0-31.0)
[2017-07-04 12:26] LABS: ADD PATHOLOGY DIFF REVIEW NO
[2017-07-04 12:29] LABS: MEAN CELL VOLUME 93 fl (80.0-100.0); MEAN CORPUSCULAR HGB CONC 33 g/dl (33.0-37.0); MEAN PLATELET VOLUME 8.9 fl (7.4-10.4); PLATELET COUNT 83 K/mm3 (130-400); RED BLOOD COUNT 3.11 M/mm3 (4.10-5.30); REDCELL DISTRIBUTION WIDTH-CV 19.9 % (11.5-14.5); WHITE BLOOD COUNT 3.2 K/mm3 (4.8-10.8)
[2017-07-04 12:36] LABS: HEMATOCRIT 28.9 % (37.0-47.0); HEMOGLOBIN 9.4 g/dl (12.5-16.0); MEAN CORPUSCULAR HEMOGLOBIN 30 pg (27.0-31.0)
[2017-07-04 13:01] LABS: ADJUSTED CALCIUM 9.4 mg/dL (8.4-10.2); ALBUMIN 3.8 gm/dL (3.5-5.0); BILIRUBIN,TOTAL 0.6 mg/dL (0.0-1.0); CALCIUM 9.2 mg/dL (8.4-10.2); CREATININE, serum 0.88 mg/dL (0.52-1.25); POTASSIUM 4.9 mmol/L (3.4-5.0); TOTAL PROTEIN 6.9 gm/dL (6.4-8.2)
[2017-07-04 13:06] VITALS: BP 89/62; PULSE 92; TEMP 97.5
[2017-07-04 13:19] LABS: BAND 8 % (0-10); NEUTROPHILS 86 % (42.0-75.2); PLATELET ESTIMATE DECREASED (NORMAL); TOTAL CELLS COUNTED 100
[2017-07-09 11:59] LABS: MEAN CELL VOLUME 93 fl (80.0-100.0); MEAN CORPUSCULAR HGB CONC 33 g/dl (33.0-37.0); MEAN PLATELET VOLUME 8.9 fl (7.4-10.4); PLATELET COUNT 86 K/mm3 (130-400); RED BLOOD COUNT 3.13 M/mm3 (4.10-5.30); REDCELL DISTRIBUTION WIDTH-CV 20.6 % (11.5-14.5); WHITE BLOOD COUNT 2.8 K/mm3 (4.8-10.8)
[2017-07-09 12:04] LABS: HEMATOCRIT 29.2 % (37.0-47.0); HEMOGLOBIN 9.5 g/dl (12.5-16.0); MEAN CORPUSCULAR HEMOGLOBIN 30 pg (27.0-31.0)
[2017-07-09 12:32] LABS: ANISOCYTOSIS 2+; BAND 7 % (0-10); EOSINOPHIL 1 % (0-4); METAMYELOCYTE 3 % (0-0); NEUTROPHILS 74 % (42.0-75.2); OVALOCYTES 1+; PLATELET ESTIMATE DECREASED (NORMAL); TOTAL CELLS COUNTED 100
[2017-07-09 12:33] LABS: ADD PATHOLOGY DIFF REVIEW YES
[2017-07-10 09:12] LABS: PATHOLOGY DIFF REVIEW OK
[2017-07-12 13:20] VITALS: BP 92/45; PULSE 94; TEMP 97.5
[2017-07-18 11:02] VITALS: BP 97/48; PULSE 96; TEMP 97.6
[2017-07-18 11:08] LABS: ADD PATHOLOGY DIFF REVIEW NO
[2017-07-18 11:28] LABS: HEMATOCRIT 28.7 % (37.0-47.0); HEMOGLOBIN 9.5 g/dl (12.5-16.0); MEAN CELL VOLUME 95 fl (80.0-100.0); MEAN CORPUSCULAR HEMOGLOBIN 31 pg (27.0-31.0); MEAN CORPUSCULAR HGB CONC 33 g/dl (33.0-37.0); MEAN PLATELET VOLUME 9.4 fl (7.4-10.4); PLATELET COUNT 137 K/mm3 (130-400); RED BLOOD COUNT 3.03 M/mm3 (4.10-5.30); REDCELL DISTRIBUTION WIDTH-CV 21.9 % (11.5-14.5); WHITE BLOOD COUNT 2.9 K/mm3 (4.8-10.8)
[2017-07-18 11:46] LABS: ANISOCYTOSIS 1+; BAND 31 % (0-10); NEUTROPHILS 40 % (42.0-75.2); TOTAL CELLS COUNTED 100
[2017-07-25 13:08] VITALS: BP 89/46; PULSE 89; TEMP 98.3
[2017-07-25 13:17] LABS: ADD PATHOLOGY DIFF REVIEW NO
[2017-07-25 13:23] LABS: MEAN CELL VOLUME 96 fl (80.0-100.0); MEAN CORPUSCULAR HGB CONC 33 g/dl (33.0-37.0); MEAN PLATELET VOLUME 9.6 fl (7.4-10.4); PLATELET COUNT 152 K/mm3 (130-400); RED BLOOD COUNT 2.89 M/mm3 (4.10-5.30); REDCELL DISTRIBUTION WIDTH-CV 21.4 % (11.5-14.5); WHITE BLOOD COUNT 4.3 K/mm3 (4.8-10.8)
[2017-07-25 13:27] LABS: HEMATOCRIT 27.8 % (37.0-47.0); HEMOGLOBIN 9.2 g/dl (12.5-16.0); MEAN CORPUSCULAR HEMOGLOBIN 32 pg (27.0-31.0)
[2017-07-25 13:32] LABS: ADJUSTED CALCIUM 9.6 mg/dL (8.4-10.2); ALBUMIN 3.7 gm/dL (3.5-5.0); BILIRUBIN,TOTAL 0.6 mg/dL (0.0-1.0); CALCIUM 9.4 mg/dL (8.4-10.2); CREATININE, serum 0.99 mg/dL (0.52-1.25); POTASSIUM 4.8 mmol/L (3.4-5.0); TOTAL PROTEIN 6.7 gm/dL (6.4-8.2)
[2017-07-25 13:55] LABS: BAND 4 % (0-10); EOSINOPHIL 1 % (0-4); METAMYELOCYTE 2 % (0-0); NEUTROPHILS 67 % (42.0-75.2); PLATELET ESTIMATE NORMAL (NORMAL); TOTAL CELLS COUNTED 100
[2017-08-01 12:16] LABS: ADD PATHOLOGY DIFF REVIEW NO
[2017-08-01 12:19] LABS: MEAN CELL VOLUME 98 fl (80.0-100.0); MEAN CORPUSCULAR HGB CONC 33 g/dl (33.0-37.0); PLATELET COUNT 144 K/mm3 (130-400); RED BLOOD COUNT 3.28 M/mm3 (4.10-5.30); REDCELL DISTRIBUTION WIDTH-CV 20.7 % (11.5-14.5); WHITE BLOOD COUNT 6.2 K/mm3 (4.8-10.8)
[2017-08-01 12:21] LABS: HEMOGLOBIN 10.7 g/dl (12.5-16.0); MEAN CORPUSCULAR HEMOGLOBIN 33 pg (27.0-31.0)
[2017-08-01 12:30] VITALS: BP 89/40; PULSE 99; TEMP 98.1
[2017-08-01 12:55] LABS: BAND 2 % (0-10); NEUTROPHILS 61 % (42.0-75.2); TOTAL CELLS COUNTED 100
[2017-08-01 12:56] LABS: ANISOCYTOSIS 2+; MICROCYTOSIS 1+; PLATELET ESTIMATE NORMAL (NORMAL); POLYCHROMASIA 1+
[2017-08-08 10:39] VITALS: BP 91/45; PULSE 93; TEMP 97.8
[2017-08-08 10:58] LABS: ADD PATHOLOGY DIFF REVIEW NO
[2017-08-08 11:05] LABS: MEAN CELL VOLUME 100 fl (80.0-100.0); MEAN CORPUSCULAR HGB CONC 33 g/dl (33.0-37.0); MEAN PLATELET VOLUME 9.8 fl (7.4-10.4); PLATELET COUNT 137 K/mm3 (130-400); RED BLOOD COUNT 3.03 M/mm3 (4.10-5.30); REDCELL DISTRIBUTION WIDTH-CV 19.7 % (11.5-14.5); WHITE BLOOD COUNT 7.5 K/mm3 (4.8-10.8)
[2017-08-08 11:07] LABS: HEMATOCRIT 30.2 % (37.0-47.0); HEMOGLOBIN 9.9 g/dl (12.5-16.0); MEAN CORPUSCULAR HEMOGLOBIN 33 pg (27.0-31.0)
[2017-08-08 11:44] LABS: BAND 15 % (0-10); NEUTROPHILS 63 % (42.0-75.2); TOTAL CELLS COUNTED 100
[2017-08-08 11:45] LABS: OVALOCYTES 1+
[2017-08-08 11:46] LABS: PLATELET ESTIMATE DECREASED (NORMAL)
[2017-08-08 11:48] LABS: ANISOCYTOSIS 1+
[2017-08-15 13:42] VITALS: BP 96/48; PULSE 88; TEMP 97.5
[~2017-08-20] VITALS: Ht 154.9 cm; Wt 50.0 kg
[2017-08-20 12:14] VITALS: BP 101/55; PULSE 85; TEMP 98.2
== END 2017-08-20 12:27 | disposition home or self-care (01) ==
LOC: EUO 11:45
PROVIDERS: Internal Medicine Medical Oncology
DX: C34.31 Malignant neoplasm of lower lobe, right bronchus or lung (principal); J44.9 Chronic obstructive pulmonary disease, unspecified; I10 Essential (primary) hypertension; E11.65 Type 2 diabetes mellitus with hyperglycemia; E11.8 Type 2 diabetes mellitus with unspecified complications; Z79.4 Long term (current) use of insulin
CPT/HCPCS: C1751; J1644

== ENCOUNTER → 2017-11-04 | Outpatient (CLI) | payer MEDICARE ==
[2017-11-04 10:53] LABS: BASO % 0.4 % (0.0-2.0); EOS # 0.2 (0.0-0.7); EOS % 2.8 % (0-4.0); GRAN # 7.2 (1.4-6.5); GRAN % 84.2 % (42.2-75.2); LYMPH # 0.6 (1.2-3.4); MEAN CELL VOLUME 98 fl (80.0-100.0); MEAN CORPUSCULAR HGB CONC 32 g/dl (33.0-37.0); MONO # 0.4 (0.1-0.6); MONO % 4.9 % (1.7-9.3); PLATELET COUNT 196 K/mm3 (130-400); RED BLOOD COUNT 3.63 M/mm3 (4.10-5.30); WHITE BLOOD COUNT 8.6 K/mm3 (4.8-10.8)
[2017-11-04 10:58] LABS: HEMATOCRIT 35.4 % (37.0-47.0); HEMOGLOBIN 11.4 g/dl (12.5-16.0); MEAN CORPUSCULAR HEMOGLOBIN 31 pg (27.0-31.0)
[2017-11-04 11:02] LABS: ADJUSTED CALCIUM 9.9 mg/dL (8.4-10.2); ALBUMIN 3.9 gm/dL (3.5-5.0); BILIRUBIN,TOTAL 0.6 mg/dL (0.0-1.0); CALCIUM 9.8 mg/dL (8.4-10.2); CREATININE, serum 1.12 mg/dL (0.52-1.25); MAGNESIUM 1.4 mg/dL (1.6-2.3); POTASSIUM 4.1 mmol/L (3.4-5.0); TOTAL PROTEIN 7.2 gm/dL (6.4-8.2)
== END ==
LOC: COL.LAB 10:13
PROVIDERS: Radiology Radiation Oncology
DX: C34.31 Malignant neoplasm of lower lobe, right bronchus or lung (principal)

== ENCOUNTER 2017-11-26 08:26 | Outpatient (CLI) | payer MEDICARE ==
[2017-11-26] VITALS (13 sets, daily range): BP systolic 88–119; BP diastolic 41–62; PULSE 82–105; TEMP 97.6
[~2017-11-26] VITALS: Ht 154.9 cm; Wt 48.6 kg
[~2017-11-26 08:26] MED LIST changes: +INCRUSE EL62.5 MCG/A IH; +[UNRECOGNIZED DRUG - OTHER] INH
== END 2017-11-26 13:35 | disposition home or self-care (01) ==
LOC: COL.RAD 08:26
DX: R91.1 Solitary pulmonary nodule (principal); I10 Essential (primary) hypertension; J44.9 Chronic obstructive pulmonary disease, unspecified; Z85.118 Personal history of other malignant neoplasm of bronchus and lung
CPT/HCPCS: 25581

== ENCOUNTER 2017-12-20 10:00 | Outpatient (RCR) | payer MEDICARE, OTHER ==
[2018-01-05] MEDS ORDERED: ZOLOFT 50MG50 MG PO (15:26)
[2018-01-14] MEDS ORDERED: OMNICEF 300MG300 MG PO (09:31)
[2018-01-14] MEDS ORDERED: CLEOCIN HCL300 MG PO (09:31)
[2018-01-14] MEDS ORDERED: IPRATROPIUM BROM3 M1 IH (09:32)
[2018-01-14] MEDS ORDERED: HEPARIN LOCK FLU5 M1 IV (09:35)
[2018-01-14] MEDS ORDERED: ASPI325T6 PO (09:38)
[2018-01-14] MEDS ORDERED: NORCO 325 MG-51 TAB PO (09:39)
[2018-01-14] MEDS ORDERED: NS INT FLUSH 1010 ML IV (09:40)
[2018-01-14] MEDS ORDERED: NOVOLOG FLEX100 U/ML SQ ×2 (09:41)
[2018-01-14] MEDS ORDERED: LEVEMIR FLEX100 U/ML SQ (09:41)
[2018-01-26] MEDS ORDERED: LEVEMIR FLEX100 U/ML SQ (21:55)
[2018-01-30] MEDS ORDERED: LEVAQUIN 750MG750 M1 PO (09:57)
[2018-01-30] MEDS ORDERED: FERROUS SU325 MG/TAB PO (09:57)
[2018-01-30] MEDS ORDERED: PREDNISONE10 MG PO (10:14)
== END 2018-02-07 14:03 | disposition home or self-care (01) ==
LOC: MKS.ESL.PT 10:00
DX: G20 Parkinson's disease (principal)
CPT/HCPCS: G8978-GP; G8979-GP

== ENCOUNTER 2018-01-14 11:37 | Inpatient (IN) | payer MEDICARE ==
[~2018-01-14] VITALS: Ht 154.9 cm; Wt 52.1 kg
[~2018-01-14 11:37] MED LIST changes: +ASPI325T6 PO; +CLEOCIN HCL300 MG PO; +HEPARIN LOCK FLU5 M1 IV; +NORCO 325 MG-51 TAB PO; +NS INT FLUSH 1010 ML IV; +ZOLOFT 50MG50 MG PO
[2018-01-14 19:55] VITALS: BP 126/47; PULSE 87; TEMP 98.1
[2018-01-15 04:05] VITALS: BP 132/52; PULSE 90; TEMP 98.8
[2018-01-15 15:08] VITALS: BP 108/39; PULSE 86; TEMP 98.5
[2018-01-15 19:15] VITALS: BP 117/54
[2018-01-16 06:00] VITALS: BP 127/42; PULSE 84; TEMP 97.4
[2018-01-16 15:55] VITALS: BP 127/50; PULSE 91; TEMP 98.3
[2018-01-17 05:57] VITALS: BP 109/60; PULSE 84; TEMP 98.1
[2018-01-17 06:15] LABS: MEAN CELL VOLUME 92 fl (80.0-100.0); MEAN CORPUSCULAR HGB CONC 31 g/dl (33.0-37.0); MEAN PLATELET VOLUME 10.1 fl (7.4-10.4); PLATELET COUNT 225 K/mm3 (130-400); RED BLOOD COUNT 3.41 M/mm3 (4.10-5.30)
[2018-01-17 06:30] LABS: CALCIUM 8.5 mg/dL (8.4-10.2); CREATININE, serum 0.82 mg/dL (0.52-1.25); POTASSIUM 4.5 mmol/L (3.4-5.0)
[2018-01-17 06:35] LABS: HEMATOCRIT 31.4 % (37.0-47.0); HEMOGLOBIN 9.8 g/dl (12.5-16.0); MEAN CORPUSCULAR HEMOGLOBIN 29 pg (27.0-31.0)
[2018-01-17 07:13] LABS: MAGNESIUM 2.1 mg/dL (1.6-2.3)
[2018-01-17 07:47] LABS: ANISOCYTOSIS 4+; BAND 7 % (0-10); HYPOCHROMIA 2+; LYMPHOCYTE 6 % (20.0-51.0); NEUTROPHILS 85 % (42.0-75.2); PLATELET ESTIMATE NORMAL (NORMAL)
[2018-01-17 15:29] VITALS: BP 103/43; PULSE 94; TEMP 97.9
[2018-01-18 06:00] VITALS: BP 100/45; PULSE 90; TEMP 97.2
[2018-01-18 16:35] VITALS: BP 110/56; PULSE 95; TEMP 97.6
[2018-01-19 06:47] VITALS: BP 109/48; PULSE 95; TEMP 98.4
[2018-01-19 08:34] VITALS: PULSE 88
[2018-01-19 10:42] VITALS: PULSE 95
[2018-01-19 16:00] VITALS: BP 87/63; PULSE 94; TEMP 98
[2018-01-19 18:00] VITALS: BP 114/57
[2018-01-20 04:48] VITALS: BP 135/71; PULSE 90; TEMP 98.6
[2018-01-20 18:40] VITALS: BP 92/53; PULSE 108; TEMP 98.1
[2018-01-21 06:11] VITALS: BP 105/73; PULSE 100; TEMP 98.3
[2018-01-21 18:34] VITALS: BP 100/54; PULSE 114; TEMP 98.4
[2018-01-22 05:13] VITALS: BP 108/40; PULSE 98; TEMP 98.1
[2018-01-22 09:31] LABS: BASO % 0.3 % (0.0-2.0); CREATININE, serum 1.08 mg/dL (0.52-1.25); EOS # 0.1 (0.0-0.7); EOS % 1.8 % (0-4.0); GRAN # 6.5 (1.4-6.5); GRAN % 83.4 % (42.2-75.2); LYMPH # 0.6 (1.2-3.4); LYMPH % 7.2 % (20.0-51.0); MEAN CELL VOLUME 95 fl (80.0-100.0); MEAN CORPUSCULAR HGB CONC 31 g/dl (33.0-37.0); MEAN PLATELET VOLUME 9.6 fl (7.4-10.4); MONO # 0.5 (0.1-0.6); MONO % 6.8 % (1.7-9.3); PLATELET COUNT 227 K/mm3 (130-400); POTASSIUM 5.3 mmol/L (3.4-5.0); RED BLOOD COUNT 3.27 M/mm3 (4.10-5.30); REDCELL DISTRIBUTION WIDTH-CV 24.1 % (11.5-14.5)
[2018-01-22 09:35] LABS: HEMATOCRIT 30.9 % (37.0-47.0); HEMOGLOBIN 9.6 g/dl (12.5-16.0); MEAN CORPUSCULAR HEMOGLOBIN 29 pg (27.0-31.0)
[2018-01-22 11:08] VITALS: BP 108/40; PULSE 100; TEMP 97.9
[2018-01-22 15:37] VITALS: BP 107/52; PULSE 103; TEMP 97.7
[2018-01-23 06:29] VITALS: BP 123/58; PULSE 77; TEMP 98.4
[2018-01-23 16:36] VITALS: BP 128/60; PULSE 113; TEMP 98.5
[2018-01-24 05:41] VITALS: BP 113/52; PULSE 103; PULSE 57; TEMP 98.5
[2018-01-24 07:04] LABS: CALCIUM 8.9 mg/dL (8.4-10.2); CREATININE, serum 1.03 mg/dL (0.52-1.25)
[2018-01-24 15:19] VITALS: BP 128/60; PULSE 116; TEMP 97.9
[2018-01-25 05:59] VITALS: BP 105/54; PULSE 109; TEMP 98.4
[2018-01-25 07:23] LABS: CALCIUM 9.4 mg/dL (8.4-10.2); CREATININE, serum 0.83 mg/dL (0.52-1.25); POTASSIUM 4.5 mmol/L (3.4-5.0)
[2018-01-25 15:36] VITALS: BP 119/53; PULSE 109; TEMP 98.6
[2018-01-26 06:30] VITALS: BP 108/58; PULSE 120; TEMP 98.8
[2018-01-26 15:44] VITALS: BP 117/58; PULSE 112; TEMP 99
[2018-01-26 17:00] VITALS: TEMP 98
[2018-01-26 19:50] VITALS: BP 143/59; PULSE 122; TEMP 97.5
[2018-01-26 20:30] LABS: ARTERIAL BLD GAS O2 SATURATION 93.5 % (92-100); ARTERIAL BLD GAS TCO2 CT 31.5; ARTERIAL BLOOD GAS BASE EXCESS 5.4 (-2-2); ARTERIAL BLOOD GAS HCO3 30.1 meq/L (22-26); ARTERIAL BLOOD GAS PCO2 44.7 mmHg (35-45); ARTERIAL BLOOD GAS PO2 70.6 mmHg (80-100); ARTERIAL BLOOD GAS pH 7.45 (7.35-7.45)
[2018-01-26 20:46] LABS: MEAN CELL VOLUME 92 fl (80.0-100.0); MEAN CORPUSCULAR HGB CONC 32 g/dl (33.0-37.0); MEAN PLATELET VOLUME 9.3 fl (7.4-10.4); PLATELET COUNT 205 K/mm3 (130-400); RED BLOOD COUNT 3.27 M/mm3 (4.10-5.30); REDCELL DISTRIBUTION WIDTH-CV 22.3 % (11.5-14.5)
[2018-01-26 20:47] LABS: HEMOGLOBIN 9.6 g/dl (12.5-16.0); MEAN CORPUSCULAR HEMOGLOBIN 29 pg (27.0-31.0)
[2018-01-26 20:55] LABS: CALCIUM 8.9 mg/dL (8.4-10.2); CREATININE, serum 0.85 mg/dL (0.52-1.25); POTASSIUM 4.4 mmol/L (3.4-5.0)
[2018-01-26 21:08] LABS: ANISOCYTOSIS 2+; BAND 3 % (0-10); EOSINOPHIL 3 % (0-4); LYMPHOCYTE 6 % (20.0-51.0); NEUTROPHILS 85 % (42.0-75.2); PLATELET ESTIMATE NORMAL (NORMAL)
[2018-01-26] MEDS ORDERED: LEVEMIR FLEX100 U/ML SQ (21:55)
== END 2018-01-26 19:55 | DRG 559 ==
PROVIDERS: Family Medicine; Internal Medicine; Nurse Practitioner Family
DX: S72.002D Fracture of unspecified part of neck of left femur, subsequent encounter for closed fracture with routine healing (principal); J18.9 Pneumonia, unspecified organism; E44.0 Moderate protein-calorie malnutrition; W18.30XD Fall on same level, unspecified, subsequent encounter; E11.42 Type 2 diabetes mellitus with diabetic polyneuropathy; J44.9 Chronic obstructive pulmonary disease, unspecified; I10 Essential (primary) hypertension; I25.10 Atherosclerotic heart disease of native coronary artery without angina pectoris; Z95.5 Presence of coronary angioplasty implant and graft; Z85.110 Personal history of malignant carcinoid tumor of bronchus and lung; G20 Parkinson's disease; Z87.891 Personal history of nicotine dependence
CPT/HCPCS: 99222-AI; 99232-AI; 99233-AI; J1644; J1650; J1815; J7030

== ENCOUNTER 2018-01-26 21:15 | Inpatient (IN) | payer MEDICARE ==
[~2018-01-26] VITALS: Ht 154.9 cm; Wt 49.0 kg
[2018-01-26 21:36] VITALS: BP 132/63; PULSE 125
[2018-01-26] MEDS ORDERED: LEVEMIR FLEX100 U/ML SQ (21:55)
[2018-01-27 04:09] VITALS: BP 105/55; PULSE 114; TEMP 98.8
[2018-01-27 05:11] LABS: MAGNESIUM 1.7 mg/dL (1.6-2.3); PHOSPHOROUS 3.7 mg/dL (2.5-4.5)
[2018-01-27 06:30] LABS: BASO % 0.3 % (0.0-2.0); EOS # 0.3 (0.0-0.7); EOS % 4.1 % (0-4.0); GRAN # 5.8 (1.4-6.5); LYMPH # 0.6 (1.2-3.4); LYMPH % 8.1 % (20.0-51.0); MEAN CELL VOLUME 94 fl (80.0-100.0); MEAN CORPUSCULAR HGB CONC 31 g/dl (33.0-37.0); MEAN PLATELET VOLUME 9.7 fl (7.4-10.4); MONO # 0.9 (0.1-0.6); MONO % 11.2 % (1.7-9.3); PLATELET COUNT 229 K/mm3 (130-400); RED BLOOD COUNT 2.98 M/mm3 (4.10-5.30); REDCELL DISTRIBUTION WIDTH-CV 22.3 % (11.5-14.5)
[2018-01-27 06:37] LABS: HEMATOCRIT 28.1 % (37.0-47.0); HEMOGLOBIN 8.7 g/dl (12.5-16.0); MEAN CORPUSCULAR HEMOGLOBIN 29 pg (27.0-31.0)
[2018-01-27 06:45] LABS: ALBUMIN 3.1 gm/dL (3.5-5.0); BILIRUBIN,TOTAL 0.4 mg/dL (0.0-1.0); CALCIUM 8.9 mg/dL (8.4-10.2); CREATININE, serum 0.79 mg/dL (0.52-1.25); POTASSIUM 3.9 mmol/L (3.4-5.0); TOTAL PROTEIN 6.3 gm/dL (6.4-8.2)
[2018-01-27 08:00] VITALS: BP 95/52; PULSE 99; TEMP 98.2
[2018-01-27 11:17] VITALS: BP 124/56; PULSE 118; TEMP 97.6
[2018-01-27 15:22] VITALS: BP 144/68; PULSE 119; TEMP 98.1
[2018-01-27 19:52] VITALS: BP 138/68; PULSE 103; TEMP 97.6
[2018-01-27 23:47] VITALS: BP 161/77; PULSE 108; TEMP 98.6
[2018-01-28 05:20] VITALS: BP 132/58; PULSE 102; TEMP 98.7
[2018-01-28 06:22] LABS: BASO % 0.1 % (0.0-2.0); EOS % 0.1 % (0-4.0); GRAN # 5.6 (1.4-6.5); GRAN % 83.1 % (42.2-75.2); LYMPH # 0.5 (1.2-3.4); LYMPH % 6.8 % (20.0-51.0); MEAN CELL VOLUME 94 fl (80.0-100.0); MEAN CORPUSCULAR HGB CONC 31 g/dl (33.0-37.0); MEAN PLATELET VOLUME 9.8 fl (7.4-10.4); MONO # 0.7 (0.1-0.6); MONO % 9.6 % (1.7-9.3); PLATELET COUNT 219 K/mm3 (130-400); REDCELL DISTRIBUTION WIDTH-CV 21.9 % (11.5-14.5)
[2018-01-28 06:25] LABS: HEMATOCRIT 28.2 % (37.0-47.0); HEMOGLOBIN 8.6 g/dl (12.5-16.0); MEAN CORPUSCULAR HEMOGLOBIN 29 pg (27.0-31.0)
[2018-01-28 06:36] LABS: CALCIUM 8.8 mg/dL (8.4-10.2); CREATININE, serum 0.8 mg/dL (0.52-1.25)
[2018-01-28 06:37] LABS: POTASSIUM 4.4 mmol/L (3.4-5.0)
[2018-01-28 08:14] VITALS: BP 146/64; PULSE 103; TEMP 98.2
[2018-01-28 11:43] VITALS: BP 146/63; PULSE 108; TEMP 98
[2018-01-28 14:01] LABS: COLLECTION METHOD CATHETER
[2018-01-28 14:09] LABS: MUCOUS Present /lpf; PH 5 (5-8); SQUAMOUS EPITHELIAL 0-2 /hpf; URINE APPEARANCE Clear; URINE BACTERIA None Seen /hpf; URINE BILIRUBIN Negative (NEGATIVE); URINE BLOOD Negative (NEGATIVE); URINE COLOR Yellow; URINE GLUCOSE 1+ (NEGATIVE); URINE KETONE Trace (NEGATIVE); URINE LEUKOCYTE ESTERASE Negative (NEGATIVE); URINE NITRATE Negative (NEGATIVE); URINE PROTEIN(semi-quant) Negative (NEGATIVE); URINE RBC 0-2 /hpf; URINE UROBILINOGEN Negative (NEGATIVE)
[2018-01-28 17:04] VITALS: BP 133/59; PULSE 107; TEMP 97.8
[2018-01-28 20:20] VITALS: BP 150/60; PULSE 107; TEMP 98
[2018-01-28 23:38] VITALS: BP 148/65; PULSE 95; TEMP 98
[2018-01-29 03:35] VITALS: BP 152/64; PULSE 103; TEMP 97.6
[2018-01-29 06:44] LABS: BASO % 0.2 % (0.0-2.0); EOS # 0.1 (0.0-0.7); EOS % 1.2 % (0-4.0); GRAN # 7.4 (1.4-6.5); GRAN % 82.7 % (42.2-75.2); LYMPH # 0.7 (1.2-3.4); LYMPH % 7.6 % (20.0-51.0); MEAN CELL VOLUME 95 fl (80.0-100.0); MEAN CORPUSCULAR HGB CONC 30 g/dl (33.0-37.0); MEAN PLATELET VOLUME 9.6 fl (7.4-10.4); MONO # 0.7 (0.1-0.6); MONO % 7.9 % (1.7-9.3); PLATELET COUNT 235 K/mm3 (130-400); RED BLOOD COUNT 2.97 M/mm3 (4.10-5.30); REDCELL DISTRIBUTION WIDTH-CV 21.6 % (11.5-14.5)
[2018-01-29 06:56] LABS: CREATININE, serum 0.78 mg/dL (0.52-1.25); POTASSIUM 4.3 mmol/L (3.4-5.0)
[2018-01-29 07:05] LABS: HEMATOCRIT 28.1 % (37.0-47.0); HEMOGLOBIN 8.5 g/dl (12.5-16.0); MEAN CORPUSCULAR HEMOGLOBIN 29 pg (27.0-31.0)
[2018-01-29 07:45] VITALS: BP 140/68; PULSE 102; TEMP 98.3
[2018-01-29 11:32] VITALS: BP 162/49; PULSE 110; TEMP 98.3
[2018-01-29 15:44] VITALS: BP 137/88; PULSE 108; TEMP 98
[2018-01-29 19:54] VITALS: BP 140/62; PULSE 112; TEMP 98.6
[2018-01-29 23:27] VITALS: BP 135/59; PULSE 101; TEMP 98.3
[2018-01-30 03:39] VITALS: BP 106/47; PULSE 96; TEMP 98.2
[2018-01-30 07:53] VITALS: BP 154/75; PULSE 97; TEMP 97.4
[2018-01-30] MEDS ORDERED: LEVAQUIN 750MG750 M1 PO (09:57)
[2018-01-30] MEDS ORDERED: FERROUS SU325 MG/TAB PO (09:57)
[2018-01-30] MEDS ORDERED: PREDNISONE10 MG PO (10:14)
[2018-01-30 10:52] VITALS: BP 117/54; PULSE 99; TEMP 97.7
[2018-01-30 15:52] VITALS: BP 150/71; PULSE 104; TEMP 98.3
== END 2018-01-30 18:18 | disposition home health service (06) | DRG 871 ==
LOC: MEDICAL 21:15
PROVIDERS: Nurse Practitioner Family; Physician Assistant
DX: A41.9 Sepsis, unspecified organism (principal); J18.9 Pneumonia, unspecified organism; E44.0 Moderate protein-calorie malnutrition; C34.31 Malignant neoplasm of lower lobe, right bronchus or lung; I10 Essential (primary) hypertension; J44.9 Chronic obstructive pulmonary disease, unspecified; I25.10 Atherosclerotic heart disease of native coronary artery without angina pectoris; Z95.5 Presence of coronary angioplasty implant and graft; E11.65 Type 2 diabetes mellitus with hyperglycemia; E11.42 Type 2 diabetes mellitus with diabetic polyneuropathy; G20 Parkinson's disease; Z87.891 Personal history of nicotine dependence; Z86.73 Personal history of transient ischemic attack (TIA), and cerebral infarction without residual deficits; Z79.01 Long term (current) use of anticoagulants; D64.9 Anemia, unspecified
CPT/HCPCS: 99223-AI; 99232-AI; 99239; J0692; J1644; J1815; J1956; J3370; J7030; J7050; J7512

== ENCOUNTER 2018-02-10 09:22 | Emergency (ER) | payer MEDICARE ==
[~2018-02-10] VITALS: Ht 154.9 cm; Wt 46.8 kg
[~2018-02-10 09:22] MED LIST changes: +FERROUS SU325 MG/TAB PO; +PREDNISONE10 MG PO
[2018-02-10 09:46] VITALS: TEMP 97.8
[2018-02-10 13:39] LABS: BASO # 0.1 (0.0-0.2); BASO % 0.3 % (0.0-2.0); EOS # 0.1 (0.0-0.7); EOS % 0.4 % (0-4.0); GRAN % 84.4 % (42.2-75.2); HEMOGLOBIN 13.1 g/dl (12.5-16.0); LYMPH # 1.4 (1.2-3.4); MEAN CELL VOLUME 93 fl (80.0-100.0); MEAN CORPUSCULAR HEMOGLOBIN 30 pg (27.0-31.0); MEAN CORPUSCULAR HGB CONC 32 g/dl (33.0-37.0); MONO % 5.7 % (1.7-9.3); PLATELET COUNT 256 K/mm3 (130-400); RED BLOOD COUNT 4.42 M/mm3 (4.10-5.30); REDCELL DISTRIBUTION WIDTH-CV 21.2 % (11.5-14.5)
[2018-02-10 13:44] LABS: PROTHROMBIN TIME 11.4 SECONDS (9.7-12.8)
[2018-02-10 13:51] LABS: ALBUMIN 3.5 gm/dL (3.5-5.0); BILIRUBIN,TOTAL 0.8 mg/dL (0.0-1.0); CALCIUM 9.2 mg/dL (8.4-10.2); CREATININE, serum 1.11 mg/dL (0.52-1.25); POTASSIUM 5.4 mmol/L (3.4-5.0); TOTAL PROTEIN 6.9 gm/dL (6.4-8.2)
[2018-02-10 14:03] LABS: TROPONIN-I 0.039 ng/mL (0.000-0.034)
[2018-02-10 14:44] LABS: COLLECTION METHOD CATHETER
[2018-02-10 14:54] LABS: MUCOUS Present /lpf; PH 6 (5-8); SQUAMOUS EPITHELIAL 0-2 /hpf; URINE APPEARANCE Clear; URINE BACTERIA None Seen /hpf; URINE BILIRUBIN Negative (NEGATIVE); URINE BLOOD Negative (NEGATIVE); URINE COLOR Yellow; URINE GLUCOSE 3+ (NEGATIVE); URINE KETONE Trace (NEGATIVE); URINE LEUKOCYTE ESTERASE Negative (NEGATIVE); URINE NITRATE Negative (NEGATIVE); URINE PROTEIN(semi-quant) Negative (NEGATIVE); URINE RBC 0-2 /hpf; URINE UROBILINOGEN Negative (NEGATIVE)
[2018-02-10 15:50] VITALS: BP 114/57; PULSE 101
== END 2018-02-10 15:53 | disposition short-term general hospital (02) ==
LOC: COL.ER 09:22
PROVIDERS: Emergency Medicine
DX: E11.9 Type 2 diabetes mellitus without complications (principal); I21.4 Non-ST elevation (NSTEMI) myocardial infarction; J18.9 Pneumonia, unspecified organism; E86.0 Dehydration; E87.8 Other disorders of electrolyte and fluid balance, not elsewhere classified; I10 Essential (primary) hypertension; I25.10 Atherosclerotic heart disease of native coronary artery without angina pectoris; J44.9 Chronic obstructive pulmonary disease, unspecified; G20 Parkinson's disease; Z85.118 Personal history of other malignant neoplasm of bronchus and lung; Z87.891 Personal history of nicotine dependence; Z90.710 Acquired absence of both cervix and uterus; Z90.89 Acquired absence of other organs; Z79.4 Long term (current) use of insulin; Z79.82 Long term (current) use of aspirin; Z79.52 Long term (current) use of systemic steroids; Z79.02 Long term (current) use of antithrombotics/antiplatelets
CPT/HCPCS: J2185; J7030

== ENCOUNTER 2018-05-08 18:39 | Observation (INO) | payer MEDICARE ==
[~2018-05-08] VITALS: Ht 154.9 cm; Wt 52.4 kg
[2018-05-08 19:19] LABS: BASO % 0.3 % (0.0-2.0); EOS # 0.2 (0.0-0.7); EOS % 2.7 % (0-4.0); GRAN % 85.1 % (42.2-75.2); HEMOGLOBIN 12.5 g/dl (12.5-16.0); LYMPH # 0.4 (1.2-3.4); LYMPH % 5.9 % (20.0-51.0); MEAN CELL VOLUME 89 fl (80.0-100.0); MEAN CORPUSCULAR HEMOGLOBIN 29 pg (27.0-31.0); MEAN CORPUSCULAR HGB CONC 33 g/dl (33.0-37.0); MEAN PLATELET VOLUME 9.2 fl (7.4-10.4); MONO # 0.3 (0.1-0.6); MONO % 5.7 % (1.7-9.3); PLATELET COUNT 163 K/mm3 (130-400); RED BLOOD COUNT 4.28 M/mm3 (4.10-5.30); REDCELL DISTRIBUTION WIDTH-CV 14.5 % (11.5-14.5)
[2018-05-08 19:31] LABS: ALBUMIN 3.4 gm/dL (3.5-5.0); BILIRUBIN,TOTAL 0.6 mg/dL (0.0-1.0); C-REACTIVE PROTEIN 3.9 mg/dL (0.0-0.9); CALCIUM 9.2 mg/dL (8.4-10.2); CREATININE, serum 0.82 mg/dL (0.52-1.25); POTASSIUM 4.1 mmol/L (3.4-5.0); TOTAL PROTEIN 7.4 gm/dL (6.4-8.2)
[2018-05-08 19:38] LABS: COLLECTION METHOD CATHETER
[2018-05-08 19:47] LABS: MUCOUS Present /lpf; PH 7 (5-8); SQUAMOUS EPITHELIAL 0-2 /hpf; URINE APPEARANCE Clear; URINE BACTERIA None Seen /hpf; URINE BILIRUBIN Negative (NEGATIVE); URINE BLOOD Negative (NEGATIVE); URINE COLOR Yellow; URINE GLUCOSE Negative (NEGATIVE); URINE KETONE Trace (NEGATIVE); URINE LEUKOCYTE ESTERASE Negative (NEGATIVE); URINE NITRATE Negative (NEGATIVE); URINE PROTEIN(semi-quant) 1+ (NEGATIVE); URINE UROBILINOGEN Negative (NEGATIVE)
[2018-05-08] MEDS ORDERED: ZOVIRAX800 MG PO (20:47)
[2018-05-08] MEDS ORDERED: OMNICEF 300MG300 MG PO (20:47)
[2018-05-08] MEDS ORDERED: ARICEPT10 MG PO (20:50)
[2018-05-08] MEDS ORDERED: WELLBUTRIN XL150 MG PO (20:51)
[2018-05-08] MEDS ORDERED: FOSAMAX 70MG TA70 MG PO (20:51)
[2018-05-08] MEDS ORDERED: PRINIVIL2.5 MG PO (20:52)
[2018-05-08 21:41] VITALS: BP 107/57; PULSE 87; TEMP 98.7
[2018-05-08 23:21] VITALS: BP 113/61; PULSE 89; TEMP 98
[2018-05-08] MEDS ORDERED: TYLENOL SU650 MG/SUP RC (23:38)
[2018-05-08] MEDS ORDERED: ASPIRIN 81M81 MG/TA2 (23:41)
[2018-05-08] MEDS ORDERED: CALCIUM 600600 M2 PO (23:43)
[2018-05-08] MEDS ORDERED: HUMULIN N 10100 U/ML SQ (23:47)
[2018-05-08] MEDS ORDERED: HUMULIN R 10100 U/ML SQ (23:48)
[2018-05-08] MEDS ORDERED: IMODIUM 2MG CAPS2 MG PO (23:49)
[2018-05-08] MEDS ORDERED: MILK OF MA400 MG/52 PO (23:51)
[2018-05-08] MEDS ORDERED: ALMACONE 360 M360 ML PO (23:52)
[2018-05-08] MEDS ORDERED: RESTORIL 1515 MG/CAP PO (23:54)
[2018-05-09 04:00] VITALS: BP 144/48; PULSE 92; TEMP 98.6
[2018-05-09 06:38] LABS: BASO % 0.4 % (0.0-2.0); EOS # 0.2 (0.0-0.7); EOS % 2.9 % (0-4.0); GRAN # 4.2 (1.4-6.5); GRAN % 82.6 % (42.2-75.2); HEMATOCRIT 38.6 % (37.0-47.0); HEMOGLOBIN 12.3 g/dl (12.5-16.0); LYMPH # 0.4 (1.2-3.4); LYMPH % 8.2 % (20.0-51.0); MEAN CELL VOLUME 92 fl (80.0-100.0); MEAN CORPUSCULAR HEMOGLOBIN 29 pg (27.0-31.0); MEAN CORPUSCULAR HGB CONC 32 g/dl (33.0-37.0); MEAN PLATELET VOLUME 9.3 fl (7.4-10.4); MONO # 0.3 (0.1-0.6); MONO % 5.3 % (1.7-9.3); PLATELET COUNT 148 K/mm3 (130-400); REDCELL DISTRIBUTION WIDTH-CV 14.3 % (11.5-14.5)
[2018-05-09 06:46] LABS: ALBUMIN 3.1 gm/dL (3.5-5.0); BILIRUBIN,TOTAL 0.4 mg/dL (0.0-1.0); CALCIUM 8.4 mg/dL (8.4-10.2); CREATININE, serum 0.72 mg/dL (0.52-1.25); POTASSIUM 4.3 mmol/L (3.4-5.0); TOTAL PROTEIN 6.5 gm/dL (6.4-8.2)
[2018-05-09 07:33] VITALS: BP 141/60; PULSE 90; TEMP 97.8
[2018-05-09 12:20] VITALS: BP 165/68; PULSE 91; TEMP 98
[2018-05-09 16:01] VITALS: BP 138/92; PULSE 100; TEMP 98.8
[2018-05-09 19:36] VITALS: BP 179/69; PULSE 109; TEMP 98.8
[2018-05-09 23:17] VITALS: BP 153/55; PULSE 102; TEMP 98
[2018-05-10 04:42] VITALS: BP 120/32; PULSE 96; TEMP 98.5
[2018-05-10 07:05] VITALS: BP 123/46; PULSE 98; TEMP 99.6
[2018-05-10 07:23] LABS: HEMOGLOBIN 11.9 g/dl (12.5-16.0); MEAN CELL VOLUME 88 fl (80.0-100.0); MEAN CORPUSCULAR HEMOGLOBIN 30 pg (27.0-31.0); MEAN CORPUSCULAR HGB CONC 34 g/dl (33.0-37.0); MEAN PLATELET VOLUME 9.3 fl (7.4-10.4); PLATELET COUNT 142 K/mm3 (130-400); RED BLOOD COUNT 4.03 M/mm3 (4.10-5.30); REDCELL DISTRIBUTION WIDTH-CV 14.4 % (11.5-14.5)
[2018-05-10 07:26] LABS: HEMATOCRIT 35.4 % (37.0-47.0)
[2018-05-10 07:53] LABS: BAND 20 % (0-10); LYMPHOCYTE 7 % (20.0-51.0); METAMYELOCYTE 1 % (0-0); NEUTROPHILS 67 % (42.0-75.2); PLATELET ESTIMATE NORMAL (NORMAL)
[2018-05-10 08:00] LABS: CALCIUM 8.2 mg/dL (8.4-10.2); CREATININE, serum 0.57 mg/dL (0.52-1.25); POTASSIUM 3.8 mmol/L (3.4-5.0)
== END 2018-05-10 15:30 | disposition home or self-care (01) ==
LOC: COL.ER 18:39 → MEDICAL 20:45
PROVIDERS: Emergency Medicine; Nurse Practitioner Family
DX: B02.9 Zoster without complications (principal); I25.10 Atherosclerotic heart disease of native coronary artery without angina pectoris; Z95.5 Presence of coronary angioplasty implant and graft; N39.0 Urinary tract infection, site not specified; E11.42 Type 2 diabetes mellitus with diabetic polyneuropathy; Z79.4 Long term (current) use of insulin; I10 Essential (primary) hypertension; E78.5 Hyperlipidemia, unspecified; R91.1 Solitary pulmonary nodule; J44.9 Chronic obstructive pulmonary disease, unspecified; Z85.118 Personal history of other malignant neoplasm of bronchus and lung; Z92.3 Personal history of irradiation; Z92.21 Personal history of antineoplastic chemotherapy; R53.81 Other malaise; R64 Cachexia; I25.2 Old myocardial infarction; G20 Parkinson's disease; Z87.891 Personal history of nicotine dependence
CPT/HCPCS: 99223-AI; 99233-AI; 99239; G0378; G8978-GP; G8979-GP; G8987-GO; G8988-GO; J0696; J1650; J1815; J3370; J7030; J7050

== ENCOUNTER → 2018-06-18 | Outpatient (CLI) | payer MEDICARE ==
[~2018-06-18] MED LIST changes: +ARICEPT10 MG PO; +ASPIRIN 81M81 MG/TA2; +CALCIUM 600600 M2 PO; +FOSAMAX 70MG TA70 MG PO; +TYLENOL SU650 MG/SUP RC; +ZOVIRAX800 MG PO
== END ==
LOC: COL.RAD 15:08
DX: C34.91 Malignant neoplasm of unspecified part of right bronchus or lung (principal); J41.1 Mucopurulent chronic bronchitis; J34.89 Other specified disorders of nose and nasal sinuses; R91.8 Other nonspecific abnormal finding of lung field